=== PATIENT | male | born 1950 | race Two or more races ===

== ENCOUNTER 2018-03-25 12:09 | Inpatient (IN) | payer MEDICARE, OTHER ==
[~2018-03-25] VITALS: Ht 172.7 cm; Wt 70.5 kg
[2018-03-25] MEDS ORDERED: BACL10TA PO (12:56)
[2018-03-25] MEDS ORDERED: LATA2.5D2 OU (12:56)
[2018-03-25] MEDS ORDERED: ATOR40TA28 PO (12:56)
[2018-03-25] MEDS ORDERED: ASPI-1182 PO (12:56)
[2018-03-25] MEDS ORDERED: TAMS0.4C32 PO (12:56)
[2018-03-25 13:13] LABS: GLUCOSE,POINT OF CARE 86 MG/DL (70-110)
[2018-03-25 13:23] LABS: BASOPHILS % (AUTO) 0.6 % (0.0-2.0); EOSINOPHILS % (AUTO) 2.2 % (1.0-6.0); HEMATOCRIT 25.7 % (41-53); HEMOGLOBIN 8.9 g/dL (13.5-17.5); LYMPHOCYTES # (AUTO) 2.6 K/uL (1.0-4.8); LYMPHOCYTES % (AUTO) 28.3 % (22.0-44.0); MEAN CORPUSCULAR HEMOGLOBIN 30.3 pg (26.0-34.0); MEAN CORPUSCULAR HGB CONC 34.5 G/dL (31.0-37.0); MEAN CORPUSCULAR VOLUME 88 fL (80-100); MONOCYTES # (AUTO) 0.9 K/uL (0.1-1.0); MONOCYTES % (AUTO) 9.7 % (2.0-9.0); NEUTROPHILS # (AUTO) 5.4 K/uL (1.8-7.7); NEUTROPHILS % (AUTO) 59.2 % (40.0-70.0); PLATELET COUNT (AUTO) 357 K/uL (150-450); RED BLOOD CELL COUNT(AUTO) 2.93 MIL/uL (4.50-5.90); RED CELL DISTRIBUTION WIDTH 15.3 % (11.5-14.5)
[2018-03-25 13:36] LABS: ALBUMIN 3.3 g/dL (3.4-5.0); BILIRUBIN,TOTAL 0.4 mg/dL (0.1-1.0); CALCIUM, TOTAL 8.8 mg/dL (8.8-10.5); CREATININE 6.96 mg/dL (0.60-1.30); TOTAL PROTEIN, SERUM 6.9 g/dL (6.4-8.2)
[2018-03-25 13:40] LABS: POTASSIUM 6.1 mmol/L (3.5-5.1)
[2018-03-25] MEDS ORDERED: MORPHINE SULFATE 4 MG/ML SYRINGE IVP ONE ×2 (14:45→20:30)
[2018-03-25] MEDS ORDERED: ONDANSETRON HCL 4 MG/2 ML VIAL IVP ONE (14:45)
[2018-03-25] MEDS ORDERED: DEXTROSE 50%-WATER 25 GM/50 ML SYRINGE IVP ONE (15:00)
[2018-03-25] MEDS ORDERED: SODIUM POLYSTYRENE SULFONATE 15 GM/60 ML SUSPENSION BOTTLE PO ONE (15:00)
[2018-03-25] MEDS ORDERED: INSULIN REGULAR, HUMAN 100 UNITS/ML IVP ONE (15:00)
[2018-03-25] MEDS ORDERED: CALCIUM GLUCONATE 100 MG/ML 10 ML IVP ONE (15:00)
[2018-03-25 15:32] LABS: GLUCOSE,POINT OF CARE 87 MG/DL (70-110)
[2018-03-25 16:12] LABS: GLUCOSE,POINT OF CARE 169 MG/DL (70-110)
[2018-03-25 17:17] LABS: APPEARANCE,URINE CLEAR (CLEAR); BILIRUBIN,URINE NEGATIVE (NEGATIVE); GLUCOSE, URINE (UA) NEGATIVE (NEGATIVE); KETONES,URINE NEGATIVE (NEGATIVE); LEUKOCYTE ESTERASE ,URINE TRACE (NEGATIVE); NITRATE,URINE NEGATIVE (NEGATIVE); OCCULT BLOOD,URINE NEGATIVE (NEGATIVE); PROTEIN,URINE NEGATIVE (NEGATIVE); UROBILINOGEN,URINE 0.2 mg/dL (<=1.0)
[2018-03-25 17:26] LABS: BACTERIA,URINE None Seen /HPF (None Seen); RBC,URINE None Seen /HPF (0-2); WBC,URINE 0-2 /HPF (0-5)
[2018-03-25 17:27] LABS: RENAL EPITHELIAL CELLS,URINE Rare /LPF (None Seen); SQUAMOUS EPITHELIAL CELL,UR Rare /LPF (None Seen)
[2018-03-25 18:37] LABS: GLUCOSE,POINT OF CARE 61 MG/DL (70-110)
[2018-03-25 19:18] LABS: GLUCOSE,POINT OF CARE 85 MG/DL (70-110)
[2018-03-25] MEDS ORDERED: ACETAMINOPHEN 325 MG TABLET PO PRN ×2 (20:00→21:30)
[2018-03-25] MEDS ORDERED: ONDANSETRON HCL 4 MG/2 ML VIAL IVP PRN (20:00)
[2018-03-25] MEDS ORDERED: 0.9% SODIUM CHLORIDE 10 ML SYRINGE IVP PRN (20:00)
[2018-03-25 21:07] VITALS: BP 185/92
[2018-03-25] MEDS ORDERED: BISACODYL 10 MG RECTAL RECTAL SUPPOSITORY PR PRN (21:30)
[2018-03-25] MEDS ORDERED: ALBUTEROL SULFATE 2.5 MG/0.5 ML NEB SOLUTION NEB PRN (21:30)
[2018-03-25] MEDS ORDERED: DEXTROSE 50%-WATER 25 GM/50 ML SYRINGE IVP PRN (21:45)
[2018-03-25 23:41] VITALS: BP 139/70
[2018-03-26] MEDS: MORPHINE SULFATE 4 MG/ML SYRINGE IVP PRN (01:54)
[2018-03-26 04:30] VITALS: BP 139/68
[2018-03-26 06:27] LABS: BASOPHILS % (AUTO) 0.5 % (0.0-2.0); EOSINOPHILS % (AUTO) 0.5 % (1.0-6.0); HEMATOCRIT 27.8 % (41-53); HEMOGLOBIN 9.6 g/dL (13.5-17.5); LYMPHOCYTES # (AUTO) 1.5 K/uL (1.0-4.8); LYMPHOCYTES % (AUTO) 13.9 % (22.0-44.0); MEAN CORPUSCULAR HEMOGLOBIN 30.1 pg (26.0-34.0); MEAN CORPUSCULAR HGB CONC 34.4 G/dL (31.0-37.0); MEAN CORPUSCULAR VOLUME 87 fL (80-100); MONOCYTES # (AUTO) 0.9 K/uL (0.1-1.0); MONOCYTES % (AUTO) 8.1 % (2.0-9.0); NEUTROPHILS # (AUTO) 8.2 K/uL (1.8-7.7); PLATELET COUNT (AUTO) 409 K/uL (150-450); RED BLOOD CELL COUNT(AUTO) 3.18 MIL/uL (4.50-5.90); RED CELL DISTRIBUTION WIDTH 14.8 % (11.5-14.5)
[2018-03-26 06:45] LABS: CALCIUM, TOTAL 8.9 mg/dL (8.8-10.5); CREATININE 6.12 mg/dL (0.60-1.30)
[2018-03-26 07:09] VITALS: BP 144/89
[2018-03-26] MEDS: PANTOPRAZOLE SODIUM 40 MG DR TABLET PO SCH (08:14)
[2018-03-26] MEDS: DOCUSATE SODIUM 100 MG CAPSULE PO SCH ×2 (08:14→20:32)
[2018-03-26] MEDS ORDERED: SODIUM POLYSTYRENE SULFONATE 15 GM/60 ML SUSPENSION BOTTLE PO ONE (09:00)
[2018-03-26] MEDS ORDERED: CALCIUM GLUCONATE 500 MG TABLET PO ONE (09:30)
[2018-03-26] MEDS: SODIUM CHLORIDE 0.9% 1,000 ML IV SCH ×2 (09:58→20:31)
[2018-03-26] MEDS ORDERED: CALCIUM GLUCONATE 100 MG/ML 10 ML IVP ONE (10:00)
[2018-03-26] MEDS: LACTULOSE 20 GM/30 ML SOLUTION UDCUP PO SCH ×2 (11:22→20:31)
[2018-03-26 11:55] VITALS: BP 139/83
[2018-03-26 12:08] LABS: CREATININE,URINE RANDOM 28.2 mg/dL (30.0-125.0)
[2018-03-26 13:00] LABS: APPEARANCE,URINE TURBID (CLEAR); GLUCOSE, URINE (UA) 100 mg/dL (NEGATIVE); KETONES,URINE 40 mg/dL (NEGATIVE); NITRATE,URINE POSITIVE (NEGATIVE); OCCULT BLOOD,URINE LARGE (NEGATIVE); PH,URINE 6.5 (5.0-8.0); PROTEIN,URINE SEE CONFIRM (NEGATIVE)
[2018-03-26 13:03] LABS: PROTEIN,URINE RANDOM 1138 mg/dL (0-11.9)
[2018-03-26 13:15] LABS: BILIRUBIN,URINE PRELIM. POSITIVE (NEGATIVE)
[2018-03-26 13:16] LABS: LEUKOCYTE ESTERASE ,URINE SMALL (NEGATIVE)
[2018-03-26 13:17] LABS: BACTERIA,URINE None Seen /HPF (None Seen); RBC,URINE Full Field /HPF (0-2); SULFOSALICYLIC ACID,URINE 4+ (Negative)
[2018-03-26 15:32] LABS: CALCIUM, TOTAL 8.7 mg/dL (8.8-10.5); CREATININE 5.43 mg/dL (0.60-1.30); POTASSIUM 4.7 mmol/L (3.5-5.1)
[2018-03-26 15:41] VITALS: BP 131/73
[2018-03-26] MEDS: CefTRIAXone SODIUM 1 GM in DEXTROSE 5%-WATER 10 ML IV SCH (16:04)
[2018-03-26 16:13] LABS: GLUCOMETER DEV NAME(LOC) 5N 1P; GLUCOSE,POINT OF CARE 120 MG/DL (70-110)
[2018-03-26 16:13] LABS: GLUCOMETER DEV NAME(LOC) 5N 1P; GLUCOSE,POINT OF CARE 103 MG/DL (70-110)
[2018-03-26 19:58] LABS: GLUCOMETER DEV NAME(LOC) 5S 2P; GLUCOSE,POINT OF CARE 130 MG/DL (70-110)
[2018-03-26 20:35] VITALS: BP 141/78
[2018-03-27] VITALS (8 sets, daily range): BP systolic 129–183; BP diastolic 75–90
[2018-03-27 03:28] LABS: GLUCOMETER DEV NAME(LOC) 5S 1M; GLUCOSE,POINT OF CARE 164 MG/DL (70-110)
[2018-03-27] MEDS: SODIUM CHLORIDE 0.9% 1,000 ML IV SCH ×2 (05:45→17:03)
[2018-03-27] MEDS: DOCUSATE SODIUM 100 MG CAPSULE PO SCH ×2 (07:43→20:15)
[2018-03-27] MEDS: LACTULOSE 20 GM/30 ML SOLUTION UDCUP PO SCH ×2 (07:43→20:15)
[2018-03-27] MEDS: PANTOPRAZOLE SODIUM 40 MG DR TABLET PO SCH (07:45)
[2018-03-27] MEDS: MORPHINE SULFATE 4 MG/ML SYRINGE IVP PRN ×3 (07:45→21:00)
[2018-03-27 12:09] LABS: CALCIUM, TOTAL 7.9 mg/dL (8.8-10.5); CREATININE 4.26 mg/dL (0.60-1.30); POTASSIUM 4.4 mmol/L (3.5-5.1)
[2018-03-27 15:33] LABS: GLUCOMETER DEV NAME(LOC) 5N 1P; GLUCOSE,POINT OF CARE 95 MG/DL (70-110)
[2018-03-27 16:04] LABS: BASOPHILS % (AUTO) 0.3 % (0.0-2.0); EOSINOPHILS % (AUTO) 3.1 % (1.0-6.0); HEMATOCRIT 23.8 % (41-53); HEMOGLOBIN 8.3 g/dL (13.5-17.5); LYMPHOCYTES # (AUTO) 1.8 K/uL (1.0-4.8); LYMPHOCYTES % (AUTO) 16.7 % (22.0-44.0); MEAN CORPUSCULAR HEMOGLOBIN 30.1 pg (26.0-34.0); MEAN CORPUSCULAR HGB CONC 34.8 G/dL (31.0-37.0); MEAN CORPUSCULAR VOLUME 87 fL (80-100); MONOCYTES # (AUTO) 1.5 K/uL (0.1-1.0); MONOCYTES % (AUTO) 13.9 % (2.0-9.0); NEUTROPHILS # (AUTO) 7.1 K/uL (1.8-7.7); PLATELET COUNT (AUTO) 343 K/uL (150-450); RED BLOOD CELL COUNT(AUTO) 2.75 MIL/uL (4.50-5.90); RED CELL DISTRIBUTION WIDTH 14.8 % (11.5-14.5)
[2018-03-27 16:18] LABS: CALCIUM, TOTAL 7.6 mg/dL (8.8-10.5); CREATININE 3.91 mg/dL (0.60-1.30); POTASSIUM 4.3 mmol/L (3.5-5.1)
[2018-03-27 16:26] LABS: ALBUMIN 2.3 g/dL (3.4-5.0); BILIRUBIN,TOTAL 0.2 mg/dL (0.1-1.0); TOTAL PROTEIN, SERUM 5.5 g/dL (6.4-8.2)
[2018-03-27] MEDS: CefTRIAXone SODIUM 1 GM in DEXTROSE 5%-WATER 10 ML IV SCH (17:02)
[2018-03-27 20:13] LABS: GLUCOMETER DEV NAME(LOC) 5N 1P; GLUCOSE,POINT OF CARE 116 MG/DL (70-110)
[2018-03-27] MEDS: BACLOFEN 10 MG TABLET PO SCH (21:06)
[2018-03-27 23:08] LABS: GLUCOMETER DEV NAME(LOC) 6N 1E; GLUCOSE,POINT OF CARE 128 MG/DL (70-110)
[2018-03-27 23:24] LABS: GLUCOMETER DEV NAME(LOC) 5N 2S; GLUCOSE,POINT OF CARE 126 MG/DL (70-110)
[2018-03-27] MEDS: OxyCODONE HCL/ACETAMINOPHEN 5-325 MG TABLET PO PRN (23:34)
[2018-03-28] MEDS: SODIUM CHLORIDE 0.9% 1,000 ML IV SCH ×2 (03:15→11:22)
[2018-03-28] MEDS: OxyCODONE HCL/ACETAMINOPHEN 5-325 MG TABLET PO PRN ×2 (04:34→11:22)
[2018-03-28 05:04] VITALS: BP 140/76
[2018-03-28 06:13] LABS: GLUCOMETER DEV NAME(LOC) 6N 2D; GLUCOSE,POINT OF CARE 113 MG/DL (70-110)
[2018-03-28 06:39] LABS: BASOPHILS % (AUTO) 0.3 % (0.0-2.0); EOSINOPHILS % (AUTO) 2.1 % (1.0-6.0); HEMATOCRIT 27.6 % (41-53); HEMOGLOBIN 9.7 g/dL (13.5-17.5); LYMPHOCYTES # (AUTO) 1.8 K/uL (1.0-4.8); LYMPHOCYTES % (AUTO) 14.9 % (22.0-44.0); MEAN CORPUSCULAR HEMOGLOBIN 30.3 pg (26.0-34.0); MEAN CORPUSCULAR VOLUME 87 fL (80-100); MONOCYTES # (AUTO) 1.4 K/uL (0.1-1.0); MONOCYTES % (AUTO) 11.9 % (2.0-9.0); NEUTROPHILS # (AUTO) 8.6 K/uL (1.8-7.7); NEUTROPHILS % (AUTO) 70.8 % (40.0-70.0); PLATELET COUNT (AUTO) 387 K/uL (150-450); RED BLOOD CELL COUNT(AUTO) 3.19 MIL/uL (4.50-5.90); RED CELL DISTRIBUTION WIDTH 14.8 % (11.5-14.5)
[2018-03-28 07:11] LABS: ALBUMIN 2.3 g/dL (3.4-5.0); BILIRUBIN,TOTAL 0.3 mg/dL (0.1-1.0); CALCIUM, TOTAL 7.9 mg/dL (8.8-10.5); CREATININE 3.36 mg/dL (0.60-1.30); POTASSIUM 4.4 mmol/L (3.5-5.1); TOTAL PROTEIN, SERUM 5.7 g/dL (6.4-8.2)
[2018-03-28 07:35] VITALS: BP 153/84
[2018-03-28 08:02] LABS: % IRON SATURATION 15.1 % (30-44)
[2018-03-28] MEDS: DOCUSATE SODIUM 100 MG CAPSULE PO SCH ×2 (09:00→20:16)
[2018-03-28] MEDS: LACTULOSE 20 GM/30 ML SOLUTION UDCUP PO SCH (09:00)
[2018-03-28] MEDS: MORPHINE SULFATE 4 MG/ML SYRINGE IVP PRN ×2 (09:05→20:14)
[2018-03-28] MEDS: PANTOPRAZOLE SODIUM 40 MG DR TABLET PO SCH (09:05)
[2018-03-28] MEDS: ATORVASTATIN CALCIUM 40 MG TABLET PO SCH (09:05)
[2018-03-28] MEDS: BACLOFEN 10 MG TABLET PO SCH ×2 (09:05→20:16)
[2018-03-28] MEDS: LATANOPROST 0.005% 2.5 ML OPHTHALMIC SOLUTION OU SCH (09:05)
[2018-03-28] MEDS: TAMSULOSIN HCL 0.4 MG CAPSULE PO SCH (09:09)
[2018-03-28 11:24] VITALS: BP 151/78
[2018-03-28 11:28] LABS: GLUCOMETER DEV NAME(LOC) 6N 2D; GLUCOSE,POINT OF CARE 115 MG/DL (70-110)
[2018-03-28] MEDS: PHENAZOPYRIDINE HCL 200 MG TABLET PO SCH ×2 (12:32→20:15)
[2018-03-28] MEDS: SOD FERRIC GLUC COMPLX/SUCROSE 125 MG in SODIUM CHLORIDE 0.9% 100 ML IV SCH (12:32)
[2018-03-28 15:53] VITALS: BP 125/64
[2018-03-28 17:57] LABS: GLUCOMETER DEV NAME(LOC) 6N 2D; GLUCOSE,POINT OF CARE 115 MG/DL (70-110)
[2018-03-28 19:35] VITALS: BP 153/85
[2018-03-28] MEDS: INSULIN LISPRO 100 UNITS/ML SQ PRN (22:51)
[2018-03-28 23:42] LABS: GLUCOMETER DEV NAME(LOC) 6N 1E; GLUCOSE,POINT OF CARE 143 MG/DL (70-110)
[2018-03-29] VITALS (7 sets, daily range): BP systolic 103–162; BP diastolic 56–84
[2018-03-29] MEDS: SODIUM CHLORIDE 0.9% 1,000 ML IV SCH ×2 (05:03→16:38)
[2018-03-29] MEDS: MORPHINE SULFATE 4 MG/ML SYRINGE IVP PRN ×4 (05:08→19:56)
[2018-03-29 07:04] LABS: BASOPHILS % (AUTO) 0.2 % (0.0-2.0); EOSINOPHILS % (AUTO) 3.5 % (1.0-6.0); HEMATOCRIT 25.8 % (41-53); LYMPHOCYTES % (AUTO) 19.4 % (22.0-44.0); MEAN CORPUSCULAR HEMOGLOBIN 30.7 pg (26.0-34.0); MEAN CORPUSCULAR HGB CONC 34.9 G/dL (31.0-37.0); MEAN CORPUSCULAR VOLUME 88 fL (80-100); MONOCYTES # (AUTO) 1.5 K/uL (0.1-1.0); MONOCYTES % (AUTO) 14.7 % (2.0-9.0); NEUTROPHILS # (AUTO) 6.3 K/uL (1.8-7.7); NEUTROPHILS % (AUTO) 62.2 % (40.0-70.0); PLATELET COUNT (AUTO) 394 K/uL (150-450); RED BLOOD CELL COUNT(AUTO) 2.93 MIL/uL (4.50-5.90); RED CELL DISTRIBUTION WIDTH 14.8 % (11.5-14.5)
[2018-03-29 07:27] LABS: ALBUMIN 2.2 g/dL (3.4-5.0); BILIRUBIN,TOTAL 0.3 mg/dL (0.1-1.0); CALCIUM, TOTAL 8.2 mg/dL (8.8-10.5); CREATININE 3.1 mg/dL (0.60-1.30); TOTAL PROTEIN, SERUM 5.5 g/dL (6.4-8.2)
[2018-03-29 07:38] LABS: GLUCOMETER DEV NAME(LOC) 6N 1E; GLUCOSE,POINT OF CARE 120 MG/DL (70-110)
[2018-03-29] MEDS ORDERED: MERTIATIDE TC99M ISOTOPE 1 EA INJ INJ ONE (09:15)
[2018-03-29] MEDS: BACLOFEN 10 MG TABLET PO SCH ×2 (10:19→19:58)
[2018-03-29] MEDS: TAMSULOSIN HCL 0.4 MG CAPSULE PO SCH (10:19)
[2018-03-29] MEDS: DOCUSATE SODIUM 100 MG CAPSULE PO SCH ×2 (10:19→19:58)
[2018-03-29] MEDS: LATANOPROST 0.005% 2.5 ML OPHTHALMIC SOLUTION OU SCH (10:19)
[2018-03-29] MEDS: PANTOPRAZOLE SODIUM 40 MG DR TABLET PO SCH (10:20)
[2018-03-29] MEDS: PHENAZOPYRIDINE HCL 200 MG TABLET PO SCH (10:20)
[2018-03-29] MEDS: ATORVASTATIN CALCIUM 40 MG TABLET PO SCH (10:20)
[2018-03-29] MEDS: SOD FERRIC GLUC COMPLX/SUCROSE 125 MG in SODIUM CHLORIDE 0.9% 100 ML IV SCH (11:59)
[2018-03-29 12:23] LABS: GLUCOMETER DEV NAME(LOC) 6N 1E; GLUCOSE,POINT OF CARE 114 MG/DL (70-110)
[2018-03-29] MEDS ORDERED: OxyCODONE HCL/ACETAMINOPHEN 10-325 MG TABLET PO PRN (17:30)
[2018-03-29 17:38] LABS: GLUCOMETER DEV NAME(LOC) 6N 2D; GLUCOSE,POINT OF CARE 120 MG/DL (70-110)
[2018-03-29] MEDS: INSULIN LISPRO 100 UNITS/ML SQ PRN (20:07)
[2018-03-29 22:22] LABS: GLUCOMETER DEV NAME(LOC) 6N 1E; GLUCOSE,POINT OF CARE 186 MG/DL (70-110)
[2018-03-30] MEDS: MORPHINE SULFATE 4 MG/ML SYRINGE IVP PRN ×5 (01:55→22:44)
[2018-03-30 04:00] VITALS: BP 115/65
[2018-03-30] MEDS: SODIUM CHLORIDE 0.9% 1,000 ML IV SCH (04:22)
[2018-03-30 06:47] LABS: GLUCOMETER DEV NAME(LOC) 6N 1E; GLUCOSE,POINT OF CARE 99 MG/DL (70-110)
[2018-03-30 07:15] LABS: BASOPHILS % (AUTO) 0.3 % (0.0-2.0); EOSINOPHILS % (AUTO) 4.2 % (1.0-6.0); HEMATOCRIT 22.2 % (41-53); LYMPHOCYTES # (AUTO) 1.9 K/uL (1.0-4.8); LYMPHOCYTES % (AUTO) 20.9 % (22.0-44.0); MEAN CORPUSCULAR HEMOGLOBIN 31.1 pg (26.0-34.0); MEAN CORPUSCULAR VOLUME 86 fL (80-100); MONOCYTES # (AUTO) 1.4 K/uL (0.1-1.0); NEUTROPHILS # (AUTO) 5.4 K/uL (1.8-7.7); NEUTROPHILS % (AUTO) 59.6 % (40.0-70.0); PLATELET COUNT (AUTO) 377 K/uL (150-450); RED BLOOD CELL COUNT(AUTO) 2.57 MIL/uL (4.50-5.90); RED CELL DISTRIBUTION WIDTH 14.5 % (11.5-14.5)
[2018-03-30 07:45] LABS: ALBUMIN 2.1 g/dL (3.4-5.0); BILIRUBIN,TOTAL 0.3 mg/dL (0.1-1.0); CREATININE 2.68 mg/dL (0.60-1.30); POTASSIUM 4.6 mmol/L (3.5-5.1); TOTAL PROTEIN, SERUM 5.2 g/dL (6.4-8.2)
[2018-03-30 07:58] VITALS: BP 122/68
[2018-03-30] MEDS: BACLOFEN 10 MG TABLET PO SCH ×2 (08:07→21:02)
[2018-03-30] MEDS: ATORVASTATIN CALCIUM 40 MG TABLET PO SCH (08:07)
[2018-03-30] MEDS: DOCUSATE SODIUM 100 MG CAPSULE PO SCH ×2 (08:07→21:01)
[2018-03-30] MEDS: PANTOPRAZOLE SODIUM 40 MG DR TABLET PO SCH (08:07)
[2018-03-30] MEDS: TAMSULOSIN HCL 0.4 MG CAPSULE PO SCH (08:08)
[2018-03-30] MEDS: LATANOPROST 0.005% 2.5 ML OPHTHALMIC SOLUTION OU SCH (08:08)
[2018-03-30] MEDS ORDERED: SODIUM CHLORIDE 0.9% IRRIG ONE (09:30)
[2018-03-30] MEDS ORDERED: EPOETIN ALFA 10,000 UNITS/ML 2 ML VIAL SQ SCH (10:30)
[2018-03-30] MEDS: SOD FERRIC GLUC COMPLX/SUCROSE 125 MG in SODIUM CHLORIDE 0.9% 100 ML IV SCH (11:43)
[2018-03-30 11:56] VITALS: BP 121/63
[2018-03-30 11:57] LABS: GLUCOMETER DEV NAME(LOC) 6N 1E; GLUCOSE,POINT OF CARE 94 MG/DL (70-110)
[2018-03-30] MEDS ORDERED: IOVERSOL 350 MG/ML 100 ML VIAL ONE (12:26)
[2018-03-30] MEDS ORDERED: SODIUM CHLORIDE 0.9% 0 ML ONE (12:26)
[2018-03-30] MEDS ORDERED: BARIUM SULFATE 0.1% SUSPENSION 450 ML BOTTLE ONE (12:26)
[2018-03-30 15:42] VITALS: BP 141/65
[2018-03-30 17:53] LABS: GLUCOMETER DEV NAME(LOC) 6N 2D; GLUCOSE,POINT OF CARE 106 MG/DL (70-110)
[2018-03-30] MEDS: OxyCODONE HCL/ACETAMINOPHEN 5-325 MG TABLET PO PRN (18:12)
[2018-03-30 19:24] VITALS: BP 130/59
[2018-03-30] MEDS: INSULIN LISPRO 100 UNITS/ML SQ PRN (20:56)
[2018-03-30 21:17] LABS: GLUCOMETER DEV NAME(LOC) 6N 1E; GLUCOSE,POINT OF CARE 234 MG/DL (70-110)
[2018-03-30 23:45] VITALS: BP 148/73
[2018-03-31] MEDS: MORPHINE SULFATE 4 MG/ML SYRINGE IVP PRN ×2 (01:52→23:23)
[2018-03-31 05:16] VITALS: BP 143/68
[2018-03-31 05:45] LABS: BASOPHILS % (AUTO) 0.3 % (0.0-2.0); EOSINOPHILS % (AUTO) 5.5 % (1.0-6.0); HEMATOCRIT 22.2 % (41-53); HEMOGLOBIN 7.8 g/dL (13.5-17.5); LYMPHOCYTES # (AUTO) 1.1 K/uL (1.0-4.8); MEAN CORPUSCULAR HEMOGLOBIN 30.5 pg (26.0-34.0); MEAN CORPUSCULAR HGB CONC 35.2 G/dL (31.0-37.0); MEAN CORPUSCULAR VOLUME 87 fL (80-100); MONOCYTES # (AUTO) 1.1 K/uL (0.1-1.0); MONOCYTES % (AUTO) 11.5 % (2.0-9.0); NEUTROPHILS # (AUTO) 6.6 K/uL (1.8-7.7); NEUTROPHILS % (AUTO) 70.7 % (40.0-70.0); PLATELET COUNT (AUTO) 389 K/uL (150-450); RED BLOOD CELL COUNT(AUTO) 2.56 MIL/uL (4.50-5.90); RED CELL DISTRIBUTION WIDTH 14.8 % (11.5-14.5)
[2018-03-31] MEDS: OxyCODONE HCL/ACETAMINOPHEN 5-325 MG TABLET PO PRN ×3 (05:50→17:40)
[2018-03-31 05:58] LABS: ALBUMIN 2.2 g/dL (3.4-5.0); BILIRUBIN,TOTAL 0.3 mg/dL (0.1-1.0); CALCIUM, TOTAL 8.2 mg/dL (8.8-10.5); CREATININE 2.58 mg/dL (0.60-1.30); POTASSIUM 4.7 mmol/L (3.5-5.1); TOTAL PROTEIN, SERUM 5.4 g/dL (6.4-8.2)
[2018-03-31 07:38] VITALS: BP 130/65
[2018-03-31] MEDS: TAMSULOSIN HCL 0.4 MG CAPSULE PO SCH (08:32)
[2018-03-31] MEDS: PANTOPRAZOLE SODIUM 40 MG DR TABLET PO SCH (08:32)
[2018-03-31] MEDS: BACLOFEN 10 MG TABLET PO SCH ×2 (08:32→20:21)
[2018-03-31] MEDS: DOCUSATE SODIUM 100 MG CAPSULE PO SCH ×2 (08:32→20:21)
[2018-03-31] MEDS: LATANOPROST 0.005% 2.5 ML OPHTHALMIC SOLUTION OU SCH (08:32)
[2018-03-31] MEDS: ATORVASTATIN CALCIUM 40 MG TABLET PO SCH (08:32)
[2018-03-31 11:00] VITALS: BP 123/58
[2018-03-31] MEDS: SOD FERRIC GLUC COMPLX/SUCROSE 125 MG in SODIUM CHLORIDE 0.9% 100 ML IV SCH (11:41)
[2018-03-31] MEDS ORDERED: SODIUM CHLORIDE 0.9% 250 ML IV ONE (11:52)
[2018-03-31 15:00] VITALS: BP 126/66
[2018-03-31 18:58] LABS: GLUCOMETER DEV NAME(LOC) 6N 1E; GLUCOSE,POINT OF CARE 91 MG/DL (70-110)
[2018-03-31 18:58] LABS: GLUCOMETER DEV NAME(LOC) 6N 1E; GLUCOSE,POINT OF CARE 104 MG/DL (70-110)
[2018-03-31 18:58] LABS: GLUCOMETER DEV NAME(LOC) 6N 2D; GLUCOSE,POINT OF CARE 108 MG/DL (70-110)
[2018-03-31 19:35] VITALS: BP 108/54
[2018-03-31] MEDS: INSULIN LISPRO 100 UNITS/ML SQ PRN (20:23)
[2018-03-31 20:28] LABS: HEMOGLOBIN 7.3 g/dL (13.5-17.5)
[2018-03-31 20:44] LABS: CALCIUM, TOTAL 7.6 mg/dL (8.8-10.5); CREATININE 2.93 mg/dL (0.60-1.30); POTASSIUM 4.5 mmol/L (3.5-5.1)
[2018-03-31 23:40] VITALS: BP 130/68
[2018-04-01] VITALS (12 sets, daily range): BP systolic 120–139; BP diastolic 52–71
[2018-04-01] MEDS ORDERED: SODIUM CHLORIDE 0.9% 250 ML IV ONE (02:35)
[2018-04-01] MEDS: OxyCODONE HCL/ACETAMINOPHEN 5-325 MG TABLET PO PRN ×3 (02:39→17:49)
[2018-04-01 07:38] LABS: GLUCOMETER DEV NAME(LOC) 6N 1E; GLUCOSE,POINT OF CARE 104 MG/DL (70-110)
[2018-04-01 07:38] LABS: GLUCOMETER DEV NAME(LOC) 6N 2D; GLUCOSE,POINT OF CARE 164 MG/DL (70-110)
[2018-04-01] MEDS: ATORVASTATIN CALCIUM 40 MG TABLET PO SCH (07:52)
[2018-04-01] MEDS: PANTOPRAZOLE SODIUM 40 MG DR TABLET PO SCH (07:52)
[2018-04-01] MEDS: LATANOPROST 0.005% 2.5 ML OPHTHALMIC SOLUTION OU SCH (07:52)
[2018-04-01] MEDS: DOCUSATE SODIUM 100 MG CAPSULE PO SCH (07:52)
[2018-04-01] MEDS: PHENAZOPYRIDINE HCL 100 MG TABLET PO SCH ×2 (07:52→15:28)
[2018-04-01] MEDS: BACLOFEN 10 MG TABLET PO SCH (07:52)
[2018-04-01] MEDS: TAMSULOSIN HCL 0.4 MG CAPSULE PO SCH (07:52)
[2018-04-01 08:45] LABS: ALPHA-1 (IFE & PEP) 0.3 g/dL (0.0-0.4); GAMMA GLOBULINS (IFE & ELP) 0.6 g/dL (0.4-1.8); IGM (IMMUNOFIXATION) 70 mg/dL (20-172)
[2018-04-01 09:37] LABS: BASOPHILS % (AUTO) 0.3 % (0.0-2.0); EOSINOPHILS % (AUTO) 7.5 % (1.0-6.0); HEMATOCRIT 24.9 % (41-53); HEMOGLOBIN 8.7 g/dL (13.5-17.5); LYMPHOCYTES # (AUTO) 1.4 K/uL (1.0-4.8); LYMPHOCYTES % (AUTO) 14.2 % (22.0-44.0); MEAN CORPUSCULAR HEMOGLOBIN 30.6 pg (26.0-34.0); MEAN CORPUSCULAR HGB CONC 34.8 G/dL (31.0-37.0); MEAN CORPUSCULAR VOLUME 88 fL (80-100); MONOCYTES # (AUTO) 1.3 K/uL (0.1-1.0); MONOCYTES % (AUTO) 13.4 % (2.0-9.0); NEUTROPHILS # (AUTO) 6.2 K/uL (1.8-7.7); NEUTROPHILS % (AUTO) 64.6 % (40.0-70.0); PLATELET COUNT (AUTO) 396 K/uL (150-450); RED BLOOD CELL COUNT(AUTO) 2.83 MIL/uL (4.50-5.90); RED CELL DISTRIBUTION WIDTH 14.8 % (11.5-14.5)
[2018-04-01 10:17] LABS: ALBUMIN 2.1 g/dL (3.4-5.0); BILIRUBIN,TOTAL 0.3 mg/dL (0.1-1.0); CREATININE 2.6 mg/dL (0.60-1.30); MAGNESIUM 1.6 mg/dL (1.80-2.40); POTASSIUM 3.9 mmol/L (3.5-5.1); TOTAL PROTEIN, SERUM 5.3 g/dL (6.4-8.2)
[2018-04-01] MEDS ORDERED: MAGNESIUM SULFATE 1 GM in DEXTROSE 5%-WATER 50 ML IV ONE (11:30)
[2018-04-01] MEDS: SOD FERRIC GLUC COMPLX/SUCROSE 125 MG in SODIUM CHLORIDE 0.9% 100 ML IV SCH (11:57)
[2018-04-01] MEDS ORDERED: PHEN-933 PO (13:10)
[2018-04-01] MEDS: MORPHINE SULFATE 4 MG/ML SYRINGE IVP PRN (13:33)
[2018-04-01 19:52] LABS: GLUCOMETER DEV NAME(LOC) 6N 2D; GLUCOSE,POINT OF CARE 100 MG/DL (70-110)
== END 2018-04-01 18:00 | disposition home or self-care (01) | DRG 725 ==
LOC: EMS 12:10 → 5S 19:30 → 6N 03-27 20:30
PROVIDERS: ADMIT Internal Medicine; ATTEND Internal Medicine
PROC: 30233N1 Transfusion of Nonautologous Red Blood Cells into Peripheral Vein, Percutaneous Approach (ICD-10-PCS; principal; 2018-04-01)
DX: N40.1 Benign prostatic hyperplasia with lower urinary tract symptoms (principal); N17.0 Acute kidney failure with tubular necrosis; N13.8 Other obstructive and reflux uropathy; N13.30 Unspecified hydronephrosis; E11.21 Type 2 diabetes mellitus with diabetic nephropathy; E87.5 Hyperkalemia; I10 Essential (primary) hypertension; D64.9 Anemia, unspecified; N32.0 Bladder-neck obstruction; R31.0 Gross hematuria; K59.00 Constipation, unspecified; F17.210 Nicotine dependence, cigarettes, uncomplicated; Z79.82 Long term (current) use of aspirin; Z79.84 Long term (current) use of oral hypoglycemic drugs; Z79.899 Other long term (current) drug therapy; Z82.49 Family history of ischemic heart disease and other diseases of the circulatory system; Z80.9 Family history of malignant neoplasm, unspecified; Z83.3 Family history of diabetes mellitus; Z71.6 Tobacco abuse counseling
CPT/HCPCS: 51702; 74176; 76770; 78707; 82570; 82784; 83540; 83550; 83735; 84155; 84156; 84165; 85014; 85018; 86334; 86850; 86900; 86901; 86920; 87086; 93005; 96374; 96375; 96376; 99285; A9562; J0610; J0696; J0885; J1815; J2270; J2405; J2916; J3475; J7030; J7050; J7060; P9016

== ENCOUNTER 2018-05-02 13:25 | Emergency (ER) | payer MEDICARE, OTHER ==
[~2018-05-02] VITALS: Ht 172.7 cm; Wt 68.2 kg
[~2018-05-02 13:25] MED LIST: ASPI-1182 PO; ATOR40TA28 PO; BACL10TA PO; LATA2.5D2 OU; PHEN-933 PO; TAMS0.4C32 PO
[2018-05-02 15:03] LABS: GLUCOSE,POINT OF CARE 118 MG/DL (70-110)
[2018-05-02 16:45] LABS: APPEARANCE,URINE CLOUDY (CLEAR); BILIRUBIN,URINE NEGATIVE (NEGATIVE); GLUCOSE, URINE (UA) NEGATIVE (NEGATIVE); KETONES,URINE TRACE mg/dL (NEGATIVE); LEUKOCYTE ESTERASE ,URINE SMALL (NEGATIVE); NITRATE,URINE POSITIVE (NEGATIVE); OCCULT BLOOD,URINE LARGE (NEGATIVE); PROTEIN,URINE SEE CONFIRM (NEGATIVE); UROBILINOGEN,URINE 0.2 mg/dL (<=1.0)
[2018-05-02] MEDS ORDERED: CIPROFLOXACIN HCL 250 MG TABLET PO ONE (17:00)
[2018-05-02 17:01] LABS: RBC,URINE >100 /HPF (0-2); SULFOSALICYLIC ACID,URINE 3+ (Negative)
[2018-05-02 17:02] LABS: BACTERIA,URINE Moderate /HPF (None Seen)
[2018-05-02 17:03] LABS: AMORPHOUS SEDIMENT,UR Few /LPF (None Seen); SQUAMOUS EPITHELIAL CELL,UR Rare /LPF (None Seen)
[2018-05-02 18:36] VITALS: BP 135/65
== END 2018-05-02 19:05 | disposition home or self-care (01) ==
LOC: EMS 13:26
DX: T83.018A Breakdown (mechanical) of other urinary catheter, initial encounter (principal); T83.84XA Pain due to genitourinary prosthetic devices, implants and grafts, initial encounter; N39.0 Urinary tract infection, site not specified; E11.9 Type 2 diabetes mellitus without complications; I10 Essential (primary) hypertension; F17.210 Nicotine dependence, cigarettes, uncomplicated
CPT/HCPCS: 51702; 87086; 99284; 99406

== ENCOUNTER 2021-06-07 15:16 | Inpatient (IN) | payer MEDICARE, OTHER ==
[~2021-06-07] VITALS: Ht 177.8 cm; Wt 92.1 kg
[~2021-06-07 15:16] MED LIST changes: -ASPI-1182 PO; +ASPI-1444 PO; +LATA2.5D14 OU; -LATA2.5D2 OU; +PHEN-846 PO; -PHEN-933 PO; +TAMS-13 PO; -TAMS0.4C32 PO
[2021-06-07] MEDS ORDERED: FERR-89 PO (16:01)
[2021-06-07] MEDS ORDERED: BRIM5DRO10 OU (16:01)
[2021-06-07] MEDS ORDERED: AMLO-257 PO (16:01)
[2021-06-07] MEDS ORDERED: PANT-31 PO (16:01)
[2021-06-07] MEDS ORDERED: ACET-2247 PO (16:01)
[2021-06-07] MEDS ORDERED: METF-960 PO (16:01)
[2021-06-07 16:44] LABS: BASOPHILS % (AUTO) 0.4 % (0.0-2.0); EOSINOPHILS % (AUTO) 0.3 % (1.0-6.0); HEMATOCRIT 31.3 % (41-53); HEMOGLOBIN 10.3 g/dL (13.5-17.5); LYMPHOCYTES # (AUTO) 2.7 K/uL (1.0-4.8); MEAN CORPUSCULAR HEMOGLOBIN 29.1 pg (26.0-34.0); MEAN CORPUSCULAR HGB CONC 32.8 G/dL (31.0-37.0); MEAN CORPUSCULAR VOLUME 89 fL (80-100); MONOCYTES # (AUTO) 1.1 K/uL (0.1-1.0); MONOCYTES % (AUTO) 6.4 % (2.0-9.0); NEUTROPHILS # (AUTO) 12.8 K/uL (1.8-7.7); NEUTROPHILS % (AUTO) 76.9 % (40.0-70.0); PLATELET COUNT (AUTO) 247 K/uL (150-450); RED BLOOD CELL COUNT(AUTO) 3.53 MIL/uL (4.50-5.90); RED CELL DISTRIBUTION WIDTH 16.2 % (11.5-14.5)
[2021-06-07 17:35] LABS: PROTHROMBIN TIME 10.5 SEC (9.4-11.6)
[2021-06-07 17:37] LABS: APPEARANCE,URINE TURBID (CLEAR); GLUCOSE, URINE (UA) 250 mg/dL (NEGATIVE); KETONES,URINE >=80 mg/dL (NEGATIVE); LEUKOCYTE ESTERASE ,URINE LARGE (NEGATIVE); NITRATE,URINE POSITIVE (NEGATIVE); OCCULT BLOOD,URINE LARGE (NEGATIVE); PROTEIN,URINE SEE CONFIRM (NEGATIVE)
[2021-06-07 17:38] LABS: BILIRUBIN,URINE PRELIM. POSITIVE (NEGATIVE)
[2021-06-07 17:40] LABS: RBC,URINE Full Field /HPF (0-2); SULFOSALICYLIC ACID,URINE 4+ (Negative)
[2021-06-07 17:41] LABS: BACTERIA,URINE None Seen /HPF (None Seen)
[2021-06-07 18:27] LABS: CALCIUM, TOTAL 8.2 mg/dL (8.8-10.5); CREATININE 1.81 mg/dL (0.60-1.30); POTASSIUM 4.8 mmol/L (3.5-5.1)
[2021-06-07] MEDS ORDERED: 0.9% SODIUM CHLORIDE 10 ML SYRINGE IVP PRN (18:30)
[2021-06-07] MEDS ORDERED: ONDANSETRON HCL 4 MG/2 ML VIAL IVP PRN ×2 (18:30→18:45)
[2021-06-07] MEDS ORDERED: ACETAMINOPHEN 325 MG TABLET PO PRN ×2 (18:30→18:45)
[2021-06-07 18:33] LABS: ALBUMIN 3.5 g/dL (3.4-5.0); BILIRUBIN,TOTAL 0.5 mg/dL (0.1-1.0); TOTAL PROTEIN, SERUM 6.9 g/dL (6.4-8.2)
[2021-06-07] MEDS ORDERED: MAGNESIUM HYDROXIDE SUSPENSION 30 ML UDCUP PO PRN (18:45)
[2021-06-07] MEDS ORDERED: ZOLPIDEM TARTRATE 5 MG TABLET PO PRN (18:45)
[2021-06-07] MEDS ORDERED: *CLINICAL-LEVOFLOXACIN IVPB DOSING CLINICAL ONE (18:45)
[2021-06-07] MEDS ORDERED: SODIUM CHLORIDE 0.9% 1,000 ML IV ONE (18:45)
[2021-06-07] MEDS ORDERED: BISACODYL 10 MG RECTAL RECTAL SUPPOSITORY PR PRN (18:45)
[2021-06-07] MEDS ORDERED: LEVOFLOXACIN 750 MG/D5% WATER 150 ML IV ONE (19:00)
[2021-06-07 19:09] LABS: HEMATOCRIT 28.8 % (41-53); HEMOGLOBIN 9.5 g/dL (13.5-17.5)
[2021-06-07 19:46] LABS: COVID AG,FIA SOURCE NASOPHARYNGEAL
[2021-06-07] MEDS: DOCUSATE SODIUM 100 MG CAPSULE PO SCH (20:46)
[2021-06-07] MEDS: MORPHINE SULFATE 2 MG/ML SYRINGE IVP PRN (20:46)
[2021-06-07 23:04] VITALS: BP 145/78
[2021-06-07] MEDS ORDERED: SODIUM CHLORIDE 0.9% IRRIG BTL 1,000 ML IRRIG ONE (23:41)
[2021-06-08] MEDS: HYDROCODONE/ACETAMINOPHEN 5-325 MG TABLET PO PRN (00:58)
[2021-06-08] MEDS: MORPHINE SULFATE 2 MG/ML SYRINGE IVP PRN ×3 (03:52→22:28)
[2021-06-08 04:00] VITALS: BP 151/76
[2021-06-08 04:52] LABS: BASOPHILS % (AUTO) 0.2 % (0.0-2.0); HEMATOCRIT 26.9 % (41-53); HEMOGLOBIN 9.1 g/dL (13.5-17.5); LYMPHOCYTES % (AUTO) 19.6 % (22.0-44.0); MEAN CORPUSCULAR HEMOGLOBIN 29.4 pg (26.0-34.0); MEAN CORPUSCULAR HGB CONC 33.7 G/dL (31.0-37.0); MEAN CORPUSCULAR VOLUME 87 fL (80-100); MONOCYTES # (AUTO) 1.3 K/uL (0.1-1.0); MONOCYTES % (AUTO) 12.1 % (2.0-9.0); NEUTROPHILS % (AUTO) 67.1 % (40.0-70.0); PLATELET COUNT (AUTO) 213 K/uL (150-450); RED BLOOD CELL COUNT(AUTO) 3.08 MIL/uL (4.50-5.90); RED CELL DISTRIBUTION WIDTH 16.2 % (11.5-14.5)
[2021-06-08 05:08] LABS: ALBUMIN 3.1 g/dL (3.4-5.0); BILIRUBIN,TOTAL 0.6 mg/dL (0.1-1.0); CALCIUM, TOTAL 7.8 mg/dL (8.8-10.5); CREATININE 1.62 mg/dL (0.60-1.30); POTASSIUM 4.1 mmol/L (3.5-5.1); TOTAL PROTEIN, SERUM 6.2 g/dL (6.4-8.2)
[2021-06-08 06:26] LABS: GLUCOMETER DEV NAME(LOC) 6S.1; GLUCOSE,POINT OF CARE 133 MG/DL (70-110)
[2021-06-08 07:59] VITALS: BP 140/91
[2021-06-08] MEDS ORDERED: SODIUM CHLORIDE 0.9% IRRIG BTL 1,000 ML IRRIG ONE (08:13)
[2021-06-08] MEDS: PANTOPRAZOLE SODIUM 40 MG DR TABLET PO SCH (08:15)
[2021-06-08] MEDS: MetFORMIN HCL 500 MG TABLET PO SCH (08:15)
[2021-06-08] MEDS: AmLODIPine BESYLATE 5 MG TABLET PO SCH (08:16)
[2021-06-08] MEDS: LATANOPROST 0.005% 2.5 ML OPHTHALMIC SOLUTION OU SCH (08:16)
[2021-06-08] MEDS: ATORVASTATIN CALCIUM 40 MG TABLET PO SCH (08:16)
[2021-06-08] MEDS: DOCUSATE SODIUM 100 MG CAPSULE PO SCH ×2 (08:16→20:41)
[2021-06-08] MEDS: TAMSULOSIN HCL 0.4 MG CAPSULE PO SCH (08:16)
[2021-06-08] MEDS ORDERED: SODIUM CHLORIDE 0.9% 500 ML IV ONE (09:40)
[2021-06-08] MEDS ORDERED: SODIUM CHLORIDE 0.9% 1,000 ML ONE (10:20)
[2021-06-08] MEDS ORDERED: SODIUM CHLORIDE 0.9% 1,000 ML IV ONE (10:30)
[2021-06-08] MEDS ORDERED: SORBITOL IRRIG ONE (10:41)
[2021-06-08] MEDS ORDERED: DEXTROSE 50%-WATER 25 GM/50 ML SYRINGE IVP PRN (11:45)
[2021-06-08] MEDS ORDERED: PROPOFOL 1% 20 ML VIAL IVP ONE (12:00)
[2021-06-08] MEDS ORDERED: SUCCINYLCHOLINE CHLORIDE 20 MG/ML 10 ML VIAL IVP ONE (12:00)
[2021-06-08] MEDS ORDERED: LIDOCAINE/PF 2% 5 ML VIAL IM ONE (12:00)
[2021-06-08] MEDS ORDERED: MIDAZOLAM HCL 2 MG/2 ML VIAL IVP ONE (12:00)
[2021-06-08] MEDS ORDERED: 0.9% SODIUM CHLORIDE 10 ML VIAL IVP ONE (12:00)
[2021-06-08] MEDS ORDERED: FentaNYL CITRATE PF 100 MCG/2 ML VIAL IVP ONE (12:00)
[2021-06-08] MEDS ORDERED: EPHEDrine SULFATE 50 MG/ML VIAL IM ONE (12:00)
[2021-06-08] MEDS ORDERED: ONDANSETRON HCL 4 MG/2 ML VIAL IVP ONE (12:00)
[2021-06-08] MEDS ORDERED: CefTRIAXone SODIUM 1 GM/VIAL ONE (12:08)
[2021-06-08] MEDS ORDERED: SODIUM CHLORIDE 0.9% 100 ML ONE (12:08)
[2021-06-08] MEDS ORDERED: FentaNYL CITRATE PF 100 MCG/2 ML VIAL IVP PRN (12:15)
[2021-06-08] MEDS ORDERED: LEVOFLOXACIN 750 MG/D5% WATER 150 ML IV ONE (12:15)
[2021-06-08] MEDS ORDERED: HYDROmorphone 2 MG/ML VIAL IVP PRN (12:15)
[2021-06-08] MEDS ORDERED: SUGAMMADEX SODIUM 200 MG/2 ML VIAL IVP ONE (12:21)
[2021-06-08] MEDS ORDERED: ACETAMINOPHEN 325 MG TABLET PO PRN (13:00)
[2021-06-08 13:19] LABS: HEMATOCRIT 23.8 % (41-53); HEMOGLOBIN 7.7 g/dL (13.5-17.5)
[2021-06-08 14:32] LABS: GLUCOMETER DEV NAME(LOC) SDS.; GLUCOSE,POINT OF CARE 136 MG/DL (70-110)
[2021-06-08 15:18] VITALS: BP 125/59
[2021-06-08] MEDS: INSULIN LISPRO 100 UNITS/ML SQ PRN ×2 (17:13→20:41)
[2021-06-08 19:54] VITALS: BP 138/52
[2021-06-08] MEDS: OXYGEN THERAPY IH SCH (20:00)
[2021-06-08 20:03] LABS: GLUCOMETER DEV NAME(LOC) 6S.1; GLUCOSE,POINT OF CARE 143 MG/DL (70-110)
[2021-06-08] MEDS: BACLOFEN 10 MG TABLET PO SCH (20:41)
[2021-06-08] MEDS: BRIMONIDINE TARTRATE 0.15% 5 ML OPHTHALMIC SOLUTION OU SCH (20:41)
[2021-06-08 21:03] LABS: HEMATOCRIT 23.1 % (41-53); HEMOGLOBIN 7.5 g/dL (13.5-17.5)
[2021-06-08 23:50] VITALS: BP 128/64
[2021-06-09] VITALS (17 sets, daily range): BP systolic 76–174; BP diastolic 48–81
[2021-06-09 02:40] LABS: GLUCOMETER DEV NAME(LOC) 6S.1; GLUCOSE,POINT OF CARE 152 MG/DL (70-110)
[2021-06-09] MEDS: MORPHINE SULFATE 2 MG/ML SYRINGE IVP PRN ×4 (05:13→22:09)
[2021-06-09 07:09] LABS: CALCIUM, TOTAL 8.1 mg/dL (8.8-10.5); CREATININE 1.59 mg/dL (0.60-1.30); POTASSIUM 4.4 mmol/L (3.5-5.1)
[2021-06-09] MEDS: OXYGEN THERAPY IH SCH ×2 (08:00→20:00)
[2021-06-09 08:34] LABS: BASOPHILS % (AUTO) 0.2 % (0.0-2.0); EOSINOPHILS % (AUTO) 1.3 % (1.0-6.0); HEMATOCRIT 24.9 % (41-53); HEMOGLOBIN 8.1 g/dL (13.5-17.5); LYMPHOCYTES # (AUTO) 2.7 K/uL (1.0-4.8); LYMPHOCYTES % (AUTO) 17.8 % (22.0-44.0); MEAN CORPUSCULAR HEMOGLOBIN 28.8 pg (26.0-34.0); MEAN CORPUSCULAR HGB CONC 32.5 G/dL (31.0-37.0); MEAN CORPUSCULAR VOLUME 89 fL (80-100); MONOCYTES # (AUTO) 1.9 K/uL (0.1-1.0); MONOCYTES % (AUTO) 12.4 % (2.0-9.0); NEUTROPHILS # (AUTO) 10.4 K/uL (1.8-7.7); NEUTROPHILS % (AUTO) 68.3 % (40.0-70.0); PLATELET COUNT (AUTO) 210 K/uL (150-450); RED BLOOD CELL COUNT(AUTO) 2.81 MIL/uL (4.50-5.90); RED CELL DISTRIBUTION WIDTH 16.5 % (11.5-14.5)
[2021-06-09] MEDS ORDERED: LIDOCAINE 2% 30 ML JELLY TP PRN (08:45)
[2021-06-09] MEDS ORDERED: PANTOPRAZOLE SODIUM 40 MG DR TABLET PO SCH (09:00)
[2021-06-09] MEDS ORDERED: SODIUM CHLORIDE 0.9% IRRIG BTL 1,000 ML IRRIG ONE ×2 (09:35→22:04)
[2021-06-09] MEDS: LEVOFLOXACIN 500 MG TABLET PO SCH (09:38)
[2021-06-09] MEDS: ATORVASTATIN CALCIUM 40 MG TABLET PO SCH (09:38)
[2021-06-09] MEDS: AmLODIPine BESYLATE 5 MG TABLET PO SCH (09:38)
[2021-06-09] MEDS: MetFORMIN HCL 500 MG TABLET PO SCH (09:39)
[2021-06-09] MEDS: PANTOPRAZOLE SODIUM 40 MG DR TABLET PO SCH (09:39)
[2021-06-09] MEDS: BACLOFEN 10 MG TABLET PO SCH ×2 (09:39→20:49)
[2021-06-09] MEDS: DOCUSATE SODIUM 100 MG CAPSULE PO SCH ×2 (09:39→20:51)
[2021-06-09] MEDS: TAMSULOSIN HCL 0.4 MG CAPSULE PO SCH (09:39)
[2021-06-09] MEDS: FERROUS SULFATE 325 MG EC TABLET PO SCH (09:39)
[2021-06-09] MEDS: LATANOPROST 0.005% 2.5 ML OPHTHALMIC SOLUTION OU SCH (09:40)
[2021-06-09] MEDS: BRIMONIDINE TARTRATE 0.15% 5 ML OPHTHALMIC SOLUTION OU SCH ×2 (09:40→20:51)
[2021-06-09] MEDS: INSULIN LISPRO 100 UNITS/ML SQ PRN (11:36)
[2021-06-09 15:57] LABS: BASOPHILS % (AUTO) 0.2 % (0.0-2.0); EOSINOPHILS % (AUTO) 1.8 % (1.0-6.0); LYMPHOCYTES # (AUTO) 2.7 K/uL (1.0-4.8); LYMPHOCYTES % (AUTO) 20.4 % (22.0-44.0); MEAN CORPUSCULAR HEMOGLOBIN 28.8 pg (26.0-34.0); MEAN CORPUSCULAR HGB CONC 32.5 G/dL (31.0-37.0); MEAN CORPUSCULAR VOLUME 89 fL (80-100); MONOCYTES # (AUTO) 1.7 K/uL (0.1-1.0); MONOCYTES % (AUTO) 12.8 % (2.0-9.0); NEUTROPHILS # (AUTO) 8.6 K/uL (1.8-7.7); NEUTROPHILS % (AUTO) 64.8 % (40.0-70.0); PLATELET COUNT (AUTO) 179 K/uL (150-450); RED CELL DISTRIBUTION WIDTH 16.7 % (11.5-14.5)
[2021-06-09 16:06] LABS: HEMOGLOBIN 6.4 g/dL (13.5-17.5)
[2021-06-09 16:07] LABS: HEMATOCRIT 19.5 % (41-53)
[2021-06-09] MEDS ORDERED: SODIUM CHLORIDE 0.9% 500 ML IV ONE (16:55)
[2021-06-09] MEDS: HYDROCODONE/ACETAMINOPHEN 5-325 MG TABLET PO PRN (18:47)
[2021-06-09] MEDS ORDERED: LEVOFLOXACIN 750 MG/D5% WATER 150 ML IV SCH (20:00)
[2021-06-09 20:07] LABS: GLUCOMETER DEV NAME(LOC) 6N.1; GLUCOSE,POINT OF CARE 126 MG/DL (70-110)
[2021-06-09 20:07] LABS: GLUCOMETER DEV NAME(LOC) 6N.1; GLUCOSE,POINT OF CARE 151 MG/DL (70-110)
[2021-06-09 20:08] LABS: GLUCOMETER DEV NAME(LOC) 6N.1; GLUCOSE,POINT OF CARE 128 MG/DL (70-110)
[2021-06-09 22:59] LABS: GLUCOMETER DEV NAME(LOC) 6N.1; GLUCOSE,POINT OF CARE 136 MG/DL (70-110)
[2021-06-10] VITALS (13 sets, daily range): BP systolic 94–152; BP diastolic 50–70
[2021-06-10] MEDS: HYDROCODONE/ACETAMINOPHEN 5-325 MG TABLET PO PRN ×3 (00:32→22:53)
[2021-06-10] MEDS: MORPHINE SULFATE 2 MG/ML SYRINGE IVP PRN ×5 (01:44→20:42)
[2021-06-10 06:57] LABS: GLUCOMETER DEV NAME(LOC) 6N.1; GLUCOSE,POINT OF CARE 151 MG/DL (70-110)
[2021-06-10 07:04] LABS: BASOPHILS % (AUTO) 0.3 % (0.0-2.0); HEMATOCRIT 23.9 % (41-53); LYMPHOCYTES # (AUTO) 2.9 K/uL (1.0-4.8); LYMPHOCYTES % (AUTO) 14.4 % (22.0-44.0); MEAN CORPUSCULAR HEMOGLOBIN 29.6 pg (26.0-34.0); MEAN CORPUSCULAR HGB CONC 33.5 G/dL (31.0-37.0); MEAN CORPUSCULAR VOLUME 89 fL (80-100); MONOCYTES # (AUTO) 2.6 K/uL (0.1-1.0); MONOCYTES % (AUTO) 12.6 % (2.0-9.0); NEUTROPHILS # (AUTO) 14.3 K/uL (1.8-7.7); NEUTROPHILS % (AUTO) 70.7 % (40.0-70.0); PLATELET COUNT (AUTO) 174 K/uL (150-450); RED CELL DISTRIBUTION WIDTH 15.9 % (11.5-14.5)
[2021-06-10 07:08] LABS: CALCIUM, TOTAL 7.9 mg/dL (8.8-10.5); CREATININE 2.08 mg/dL (0.60-1.30)
[2021-06-10] MEDS ORDERED: SODIUM CHLORIDE 0.9% IRRIG BTL 1,000 ML IRRIG ONE (07:45)
[2021-06-10] MEDS: MetFORMIN HCL 500 MG TABLET PO SCH ×2 (08:00→17:04)
[2021-06-10] MEDS: OXYGEN THERAPY IH SCH (08:00)
[2021-06-10] MEDS: FERROUS SULFATE 325 MG EC TABLET PO SCH ×2 (08:00→17:03)
[2021-06-10] MEDS: DOCUSATE SODIUM 100 MG CAPSULE PO SCH ×2 (08:12→09:00)
[2021-06-10] MEDS: BRIMONIDINE TARTRATE 0.15% 5 ML OPHTHALMIC SOLUTION OU SCH ×2 (08:15→20:48)
[2021-06-10] MEDS: LATANOPROST 0.005% 2.5 ML OPHTHALMIC SOLUTION OU SCH (08:16)
[2021-06-10] MEDS: PANTOPRAZOLE SODIUM 40 MG DR TABLET PO SCH ×2 (09:00→17:04)
[2021-06-10] MEDS: BACLOFEN 10 MG TABLET PO SCH ×2 (09:00→20:42)
[2021-06-10] MEDS ORDERED: SORBITOL IRRIGATION 3,000 ML IRRIG ONE (11:11)
[2021-06-10] MEDS: SODIUM CHLORIDE 0.9% 1,000 ML IV ONE ×2 (11:16→11:22)
[2021-06-10] MEDS ORDERED: SODIUM CHLORIDE 0.9% 0 ML ONE (11:18)
[2021-06-10] MEDS ORDERED: SODIUM CHLORIDE 0.9% 1,000 ML ONE ×4 (11:24→15:14)
[2021-06-10] MEDS ORDERED: EPHEDrine SULFATE 50 MG/ML VIAL IM ONE (12:00)
[2021-06-10] MEDS ORDERED: PHENYLEPHRINE HCL 10 MG/ML VIAL IVP ONE (12:00)
[2021-06-10] MEDS ORDERED: FentaNYL CITRATE PF 100 MCG/2 ML VIAL IVP ONE (12:00)
[2021-06-10] MEDS ORDERED: PROPOFOL 1% 20 ML VIAL IVP ONE (12:00)
[2021-06-10] MEDS ORDERED: LIDOCAINE/PF 2% 5 ML VIAL IM ONE (12:00)
[2021-06-10] MEDS ORDERED: ROCURONIUM BROMIDE 10 MG/ML 5 ML VIAL IVP ONE (12:00)
[2021-06-10 12:18] LABS: GLUCOMETER DEV NAME(LOC) 6S.1; GLUCOSE,POINT OF CARE 128 MG/DL (70-110)
[2021-06-10] MEDS ORDERED: SUGAMMADEX SODIUM 200 MG/2 ML VIAL IVP ONE (13:12)
[2021-06-10] MEDS ORDERED: SORBITOL IRRIG ONE (13:43)
[2021-06-10] MEDS ORDERED: OPIUM/BELLADONNA ALK 60 MG-16.2 MG RECTAL SUPPOSITORY PR PRN (14:30)
[2021-06-10] MEDS ORDERED: HYDROmorphone 2 MG/ML VIAL ONE (14:46)
[2021-06-10] MEDS ORDERED: HYDROmorphone 2 MG/ML VIAL IVP PRN ×2 (15:00)
[2021-06-10] MEDS: HYDROmorphone 2 MG/ML VIAL IVP PRN ×2 (15:06→15:14)
[2021-06-10] MEDS: ATORVASTATIN CALCIUM 40 MG TABLET PO SCH (17:03)
[2021-06-10] MEDS: LEVOFLOXACIN 500 MG TABLET PO SCH (17:04)
[2021-06-10] MEDS: TAMSULOSIN HCL 0.4 MG CAPSULE PO SCH (17:04)
[2021-06-10] MEDS: AmLODIPine BESYLATE 5 MG TABLET PO SCH (17:05)
[2021-06-10] MEDS: INSULIN LISPRO 100 UNITS/ML SQ PRN ×2 (17:18→20:43)
[2021-06-10 19:33] LABS: GLUCOMETER DEV NAME(LOC) 6S.1; GLUCOSE,POINT OF CARE 142 MG/DL (70-110)
[2021-06-11] MEDS: MORPHINE SULFATE 2 MG/ML SYRINGE IVP PRN ×3 (01:06→21:49)
[2021-06-11] MEDS: HYDROCODONE/ACETAMINOPHEN 5-325 MG TABLET PO PRN ×3 (03:20→17:16)
[2021-06-11 03:23] VITALS: BP 111/57
[2021-06-11] MEDS: INSULIN LISPRO 100 UNITS/ML SQ PRN (05:13)
[2021-06-11 07:17] LABS: GLUCOMETER DEV NAME(LOC) 6N.1; GLUCOSE,POINT OF CARE 147 MG/DL (70-110)
[2021-06-11 07:18] LABS: GLUCOMETER DEV NAME(LOC) 6N.1; GLUCOSE,POINT OF CARE 143 MG/DL (70-110)
[2021-06-11] MEDS: OXYGEN THERAPY IH SCH ×2 (08:00→20:00)
[2021-06-11 08:23] VITALS: BP 107/63
[2021-06-11] MEDS: DOCUSATE SODIUM 100 MG CAPSULE PO SCH ×2 (08:40→20:24)
[2021-06-11] MEDS: PANTOPRAZOLE SODIUM 40 MG DR TABLET PO SCH (08:41)
[2021-06-11] MEDS: BACLOFEN 10 MG TABLET PO SCH ×2 (08:41→20:24)
[2021-06-11] MEDS: TAMSULOSIN HCL 0.4 MG CAPSULE PO SCH (08:41)
[2021-06-11] MEDS: LEVOFLOXACIN 500 MG TABLET PO SCH (08:41)
[2021-06-11] MEDS: AmLODIPine BESYLATE 5 MG TABLET PO SCH (08:41)
[2021-06-11] MEDS: MULTIVITAMINS, THERAPEUTIC TABLET PO SCH (08:41)
[2021-06-11] MEDS: ATORVASTATIN CALCIUM 40 MG TABLET PO SCH (08:42)
[2021-06-11] MEDS: FERROUS SULFATE 325 MG EC TABLET PO SCH (08:44)
[2021-06-11] MEDS: MetFORMIN HCL 500 MG TABLET PO SCH (08:45)
[2021-06-11] MEDS: BRIMONIDINE TARTRATE 0.15% 5 ML OPHTHALMIC SOLUTION OU SCH ×2 (08:46→20:24)
[2021-06-11] MEDS: LATANOPROST 0.005% 2.5 ML OPHTHALMIC SOLUTION OU SCH (08:46)
[2021-06-11 19:24] VITALS: BP 132/89
[2021-06-11 19:58] LABS: GLUCOMETER DEV NAME(LOC) 6S.1; GLUCOSE,POINT OF CARE 114 MG/DL (70-110)
[2021-06-11 19:58] LABS: GLUCOMETER DEV NAME(LOC) 6N.1; GLUCOSE,POINT OF CARE 127 MG/DL (70-110)
[2021-06-11 20:46] LABS: GLUCOMETER DEV NAME(LOC) 6S.1; GLUCOSE,POINT OF CARE 127 MG/DL (70-110)
[2021-06-11 23:00] VITALS: BP 124/64
[2021-06-12] VITALS (18 sets, daily range): BP systolic 109–135; BP diastolic 52–75
[2021-06-12] MEDS: MORPHINE SULFATE 2 MG/ML SYRINGE IVP PRN ×3 (01:54→20:25)
[2021-06-12] MEDS: HYDROCODONE/ACETAMINOPHEN 5-325 MG TABLET PO PRN ×2 (03:29→11:28)
[2021-06-12 06:50] LABS: GLUCOMETER DEV NAME(LOC) 6S.1; GLUCOSE,POINT OF CARE 121 MG/DL (70-110)
[2021-06-12] MEDS: OXYGEN THERAPY IH SCH ×2 (08:00→20:33)
[2021-06-12] MEDS: BACLOFEN 10 MG TABLET PO SCH ×2 (08:14→20:26)
[2021-06-12] MEDS: MetFORMIN HCL 500 MG TABLET PO SCH (08:14)
[2021-06-12] MEDS: DOCUSATE SODIUM 100 MG CAPSULE PO SCH ×2 (08:14→20:25)
[2021-06-12] MEDS: AmLODIPine BESYLATE 5 MG TABLET PO SCH (08:14)
[2021-06-12] MEDS: MULTIVITAMINS, THERAPEUTIC TABLET PO SCH (08:15)
[2021-06-12] MEDS: FERROUS SULFATE 325 MG EC TABLET PO SCH (08:15)
[2021-06-12] MEDS: BRIMONIDINE TARTRATE 0.15% 5 ML OPHTHALMIC SOLUTION OU SCH ×2 (08:15→21:01)
[2021-06-12] MEDS: PANTOPRAZOLE SODIUM 40 MG DR TABLET PO SCH (08:15)
[2021-06-12] MEDS: ATORVASTATIN CALCIUM 40 MG TABLET PO SCH (08:15)
[2021-06-12] MEDS: LATANOPROST 0.005% 2.5 ML OPHTHALMIC SOLUTION OU SCH (08:15)
[2021-06-12] MEDS: TAMSULOSIN HCL 0.4 MG CAPSULE PO SCH (08:15)
[2021-06-12] MEDS: LEVOFLOXACIN 500 MG TABLET PO SCH (11:10)
[2021-06-12 11:48] LABS: GLUCOMETER DEV NAME(LOC) 6N.1; GLUCOSE,POINT OF CARE 103 MG/DL (70-110)
[2021-06-12 14:36] LABS: BASOPHILS % (AUTO) 0.2 % (0.0-2.0); EOSINOPHILS % (AUTO) 2.9 % (1.0-6.0); HEMOGLOBIN 6.5 g/dL (13.5-17.5); LYMPHOCYTES # (AUTO) 2.7 K/uL (1.0-4.8); LYMPHOCYTES % (AUTO) 15.6 % (22.0-44.0); MEAN CORPUSCULAR HEMOGLOBIN 29.9 pg (26.0-34.0); MEAN CORPUSCULAR HGB CONC 33.1 G/dL (31.0-37.0); MEAN CORPUSCULAR VOLUME 90 fL (80-100); MONOCYTES # (AUTO) 2.3 K/uL (0.1-1.0); MONOCYTES % (AUTO) 13.2 % (2.0-9.0); NEUTROPHILS # (AUTO) 11.7 K/uL (1.8-7.7); NEUTROPHILS % (AUTO) 68.1 % (40.0-70.0); PLATELET COUNT (AUTO) 245 K/uL (150-450); RED BLOOD CELL COUNT(AUTO) 2.19 MIL/uL (4.50-5.90)
[2021-06-12 14:37] LABS: HEMATOCRIT 19.8 % (41-53)
[2021-06-12] MEDS ORDERED: SODIUM CHLORIDE 0.9% 500 ML IV ONE (14:57)
[2021-06-12 15:31] LABS: PLATELET MORPHOLOGY COMMENT GIANT PLTS PRESENT
[2021-06-12 18:46] LABS: CALCIUM, TOTAL 7.8 mg/dL (8.8-10.5); CREATININE 1.94 mg/dL (0.60-1.30); POTASSIUM 4.6 mmol/L (3.5-5.1)
[2021-06-12 18:54] LABS: GLUCOMETER DEV NAME(LOC) 6N.1; GLUCOSE,POINT OF CARE 114 MG/DL (70-110)
[2021-06-12] MEDS: INSULIN LISPRO 100 UNITS/ML SQ PRN (20:29)
[2021-06-12] MEDS ORDERED: SODIUM CHLORIDE 0.9% 250 ML IV ONE (22:24)
[2021-06-12 23:38] LABS: GLUCOMETER DEV NAME(LOC) 6N.1; GLUCOSE,POINT OF CARE 121 MG/DL (70-110)
[2021-06-13] VITALS (11 sets, daily range): BP systolic 121–150; BP diastolic 63–84
[2021-06-13] MEDS: MORPHINE SULFATE 2 MG/ML SYRINGE IVP PRN ×2 (01:21→09:27)
[2021-06-13] MEDS: HYDROCODONE/ACETAMINOPHEN 5-325 MG TABLET PO PRN (03:33)
[2021-06-13 06:46] LABS: BASOPHILS % (AUTO) 0.2 % (0.0-2.0); EOSINOPHILS % (AUTO) 3.9 % (1.0-6.0); HEMATOCRIT 27.3 % (41-53); HEMOGLOBIN 9.3 g/dL (13.5-17.5); LYMPHOCYTES # (AUTO) 3.1 K/uL (1.0-4.8); LYMPHOCYTES % (AUTO) 20.1 % (22.0-44.0); MEAN CORPUSCULAR HEMOGLOBIN 30.4 pg (26.0-34.0); MEAN CORPUSCULAR HGB CONC 33.9 G/dL (31.0-37.0); MEAN CORPUSCULAR VOLUME 90 fL (80-100); MONOCYTES % (AUTO) 13.1 % (2.0-9.0); NEUTROPHILS # (AUTO) 9.5 K/uL (1.8-7.7); NEUTROPHILS % (AUTO) 62.7 % (40.0-70.0); PLATELET COUNT (AUTO) 291 K/uL (150-450); RED BLOOD CELL COUNT(AUTO) 3.05 MIL/uL (4.50-5.90); RED CELL DISTRIBUTION WIDTH 15.3 % (11.5-14.5)
[2021-06-13] MEDS: OXYGEN THERAPY IH SCH (08:00)
[2021-06-13 09:03] LABS: GLUCOMETER DEV NAME(LOC) 6S.1; GLUCOSE,POINT OF CARE 111 MG/DL (70-110)
[2021-06-13] MEDS: LATANOPROST 0.005% 2.5 ML OPHTHALMIC SOLUTION OU SCH (09:14)
[2021-06-13] MEDS: FERROUS SULFATE 325 MG EC TABLET PO SCH (09:15)
[2021-06-13] MEDS: AmLODIPine BESYLATE 5 MG TABLET PO SCH (09:15)
[2021-06-13] MEDS: MULTIVITAMINS, THERAPEUTIC TABLET PO SCH (09:15)
[2021-06-13] MEDS: BRIMONIDINE TARTRATE 0.15% 5 ML OPHTHALMIC SOLUTION OU SCH ×2 (09:15→20:43)
[2021-06-13] MEDS: DOCUSATE SODIUM 100 MG CAPSULE PO SCH ×2 (09:15→20:43)
[2021-06-13] MEDS: BACLOFEN 10 MG TABLET PO SCH ×2 (09:15→20:43)
[2021-06-13] MEDS: PANTOPRAZOLE SODIUM 40 MG DR TABLET PO SCH (09:15)
[2021-06-13] MEDS: MetFORMIN HCL 500 MG TABLET PO SCH (09:15)
[2021-06-13] MEDS: TAMSULOSIN HCL 0.4 MG CAPSULE PO SCH (09:15)
[2021-06-13] MEDS: LEVOFLOXACIN 500 MG TABLET PO SCH (09:15)
[2021-06-13] MEDS: ATORVASTATIN CALCIUM 40 MG TABLET PO SCH (09:15)
[2021-06-13 11:04] LABS: CALCIUM, TOTAL 8.5 mg/dL (8.8-10.5); CREATININE 1.73 mg/dL (0.60-1.30); POTASSIUM 4.9 mmol/L (3.5-5.1)
[2021-06-13 12:02] LABS: GLUCOMETER DEV NAME(LOC) 6N.1; GLUCOSE,POINT OF CARE 113 MG/DL (70-110)
[2021-06-13 19:57] LABS: GLUCOMETER DEV NAME(LOC) 6N.1; GLUCOSE,POINT OF CARE 112 MG/DL (70-110)
[2021-06-13 21:11] LABS: GLUCOMETER DEV NAME(LOC) 6N.1; GLUCOSE,POINT OF CARE 125 MG/DL (70-110)
[2021-06-14 05:10] VITALS: BP 144/91
[2021-06-14] MEDS: OXYGEN THERAPY IH SCH (08:00)
[2021-06-14] MEDS: PANTOPRAZOLE SODIUM 40 MG DR TABLET PO SCH (08:01)
[2021-06-14] MEDS: ATORVASTATIN CALCIUM 40 MG TABLET PO SCH (08:01)
[2021-06-14] MEDS: MetFORMIN HCL 500 MG TABLET PO SCH (08:01)
[2021-06-14] MEDS: DOCUSATE SODIUM 100 MG CAPSULE PO SCH (08:01)
[2021-06-14] MEDS: TAMSULOSIN HCL 0.4 MG CAPSULE PO SCH (08:02)
[2021-06-14] MEDS: BACLOFEN 10 MG TABLET PO SCH (08:02)
[2021-06-14] MEDS: FERROUS SULFATE 325 MG EC TABLET PO SCH (08:02)
[2021-06-14] MEDS: LEVOFLOXACIN 500 MG TABLET PO SCH (08:02)
[2021-06-14] MEDS: AmLODIPine BESYLATE 5 MG TABLET PO SCH (08:02)
[2021-06-14] MEDS: MULTIVITAMINS, THERAPEUTIC TABLET PO SCH (08:02)
[2021-06-14] MEDS: LATANOPROST 0.005% 2.5 ML OPHTHALMIC SOLUTION OU SCH (08:03)
[2021-06-14] MEDS: BRIMONIDINE TARTRATE 0.15% 5 ML OPHTHALMIC SOLUTION OU SCH (08:03)
[2021-06-14 08:11] LABS: GLUCOMETER DEV NAME(LOC) 6S.1; GLUCOSE,POINT OF CARE 114 MG/DL (70-110)
[2021-06-14 08:19] VITALS: BP 130/67
[2021-06-14 12:39] LABS: GLUCOMETER DEV NAME(LOC) 6S.1; GLUCOSE,POINT OF CARE 96 MG/DL (70-110)
[2021-06-14 13:17] LABS: BASOPHILS % (AUTO) 0.3 % (0.0-2.0); EOSINOPHILS % (AUTO) 3.9 % (1.0-6.0); HEMATOCRIT 29.9 % (41-53); HEMOGLOBIN 9.8 g/dL (13.5-17.5); LYMPHOCYTES # (AUTO) 3.1 K/uL (1.0-4.8); LYMPHOCYTES % (AUTO) 22.4 % (22.0-44.0); MEAN CORPUSCULAR HEMOGLOBIN 29.5 pg (26.0-34.0); MEAN CORPUSCULAR HGB CONC 32.8 G/dL (31.0-37.0); MEAN CORPUSCULAR VOLUME 90 fL (80-100); MONOCYTES # (AUTO) 1.8 K/uL (0.1-1.0); MONOCYTES % (AUTO) 12.7 % (2.0-9.0); NEUTROPHILS # (AUTO) 8.4 K/uL (1.8-7.7); NEUTROPHILS % (AUTO) 60.7 % (40.0-70.0); PLATELET COUNT (AUTO) 368 K/uL (150-450); RED BLOOD CELL COUNT(AUTO) 3.32 MIL/uL (4.50-5.90); RED CELL DISTRIBUTION WIDTH 15.2 % (11.5-14.5)
== END 2021-06-14 15:47 | disposition home or self-care (01) | DRG 713 ==
LOC: EMS 15:16 → 6N 19:00
PROVIDERS: ADMIT Internal Medicine; ATTEND Internal Medicine
PROC: 30233N1 Transfusion of Nonautologous Red Blood Cells into Peripheral Vein, Percutaneous Approach (ICD-10-PCS; 2021-06-09)
PROC: 0TCB8ZZ Extirpation of Matter from Bladder, Via Natural or Artificial Opening Endoscopic (ICD-10-PCS; 2021-06-10)
PROC: 0VB08ZZ Excision of Prostate, Via Natural or Artificial Opening Endoscopic (ICD-10-PCS; principal; 2021-06-10 12:30)
DX: N40.1 Benign prostatic hyperplasia with lower urinary tract symptoms (principal); R65.11 Systemic inflammatory response syndrome (SIRS) of non-infectious origin with acute organ dysfunction; N13.6 Pyonephrosis; E87.1 Hypo-osmolality and hyponatremia; N13.8 Other obstructive and reflux uropathy; N17.9 Acute kidney failure, unspecified; R31.0 Gross hematuria; I10 Essential (primary) hypertension; E78.5 Hyperlipidemia, unspecified; Z20.822 Contact with and (suspected) exposure to COVID-19; E11.9 Type 2 diabetes mellitus without complications; Z79.84 Long term (current) use of oral hypoglycemic drugs; Z79.82 Long term (current) use of aspirin; D50.0 Iron deficiency anemia secondary to blood loss (chronic); E78.00 Pure hypercholesterolemia, unspecified; N28.1 Cyst of kidney, acquired; N27.1 Small kidney, bilateral; R33.8 Other retention of urine; F17.210 Nicotine dependence, cigarettes, uncomplicated; N32.89 Other specified disorders of bladder
CPT/HCPCS: 51702; 74019; 74176; 76770; 80048; 80053; 81001; 81002; 82962; 83690; 84484; 85014; 85018; 85025; 85610; 85730; 86850; 86900; 86901; 86923; 87086; 88305; 97162; 99285; A9575; J0330; J0696; J1170; J1956; J2250; J2270; J2370; J2405; J2704; J3010; J3490; J7030; J7040; J7050; P9016